=== PATIENT | female | born 1995 | race Caucasian/White ===

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

== ENCOUNTER 2017-06-28 20:43 | Emergency (ER) | payer BC ==
[~2017-06-28] VITALS: Ht 154.9 cm; Wt 55.8 kg
[~2017-06-28 20:43] MED LIST changes: +CARAFATE1 GM PO
[2017-06-28 21:16] LABS: HEMATOCRIT 40.9 % (36.0-46.0); HEMOGLOBIN 14.1 G/DL (11.9-15.5); MCH 29.6 PG (29.0-34.0); MCHC 34.5 G/DL (30.0-36.0); MCV 85.9 FL (83-99); PLATELET COUNT 283 K/uL (156-360); RBC DIS.WIDTH-CV 12.1 % (11.8-14.6); RBC DIS.WIDTH-SD 38.2 % (39-53); RED BLOOD COUNT 4.76 M/uL (3.80-5.20); WHITE BLOOD COUNT 5.3 K/uL (4.1-10.2)
[2017-06-28 21:41] LABS: ALBUMIN 4.2 g/dL (3.2-4.8); CHLORIDE 109 mEq/L (99-109); POTASSIUM 3.6 mEq/L (3.7-5.4); QUANTITATIVE HCG < 4.0 MIU/ML; SODIUM 142 mEq/L (136-147)
[2017-06-28 21:44] LABS: GLUCOSE 90 mg/dL (70-99); TOTAL PROTEIN 7.3 g/dL (6.4-8.3)
[2017-06-28 21:45] LABS: TOTAL BILIRUBIN 0.8 mg/dL (0.0-1.0)
[2017-06-28 21:47] LABS: ALKALINE PHOSPHATASE 60 IU/L (3-129); CREATININE 0.8 mg/dL (0.6-1.3); GFR ESTIMATE (CALCULATED) > 59 mL/min/
[2017-06-28 21:48] LABS: UREA NITROGEN (BUN) 6 mg/dL (9-23)
[2017-06-28 21:49] LABS: AST (GOT) 29 IU/L (2-34)
[2017-06-28 21:50] LABS: ALT (GPT) 31 IU/L (3-49)
[2017-06-28 21:51] LABS: LIPASE 14 U/L (1.0-51.0)
[2017-06-28 22:03] LABS: APPEARANCE CLEAR ((CLEAR)); BILIRUBIN NEGATIVE; BLOOD MODERATE; COLOR YELLOW ((YELLOW)); GLUCOSE (STRIP) NEGATIVE; KETONES NEGATIVE; LEUKOCYTES NEGATIVE; NITRITE NEGATIVE; PROTEIN (STRIP) NEGATIVE; SPECIFIC GRAVITY 1.021 (1.000-1.030)
[2017-06-28 22:14] LABS: BACTERIA NONE SEEN /HPF; EPITHELIAL CELLS NONE SEEN /HPF; MUCUS 2+ /LPF; RED BLOOD CELLS 0-5 /HPF (0-5); UCUL ADDED? NO; WHITE BLOOD CELLS 0-5 /HPF (0-5)
[2017-06-29] MEDS ORDERED: ZOFRAN4 MG PO (00:06)
[2017-06-29] MEDS ORDERED: ZANTAC150 MG PO (00:06)
[2017-06-29 00:26] VITALS: BP 110/69
== END 2017-06-29 00:26 | disposition home or self-care (01) ==
LOC: EME 20:43
DX: R10.13 Epigastric pain (principal); R11.2 Nausea with vomiting, unspecified; I45.6 Pre-excitation syndrome; J45.909 Unspecified asthma, uncomplicated
CPT/HCPCS: 80053; 81003; 83690; 84702; 85027; 99281; 99284